=== PATIENT | male | born 1970 | race Caucasian/White ===

== ENCOUNTER → 2017-09-21 | Outpatient (REF) | LOC: AUD 09:15 | PROVIDERS: ATTEND Internal Medicine | DX: Z01.10 Encounter for examination of ears and hearing without abnormal findings (principal) | CPT/HCPCS: 92552 ==

== ENCOUNTER → 2018-10-17 | Outpatient (REF) | LOC: AUD 08:30 | PROVIDERS: ATTEND Internal Medicine | DX: Z01.12 Encounter for hearing conservation and treatment (principal) | CPT/HCPCS: 92552 ==